=== PATIENT | female | born 1985 | race Two or more races ===

== ENCOUNTER 2017-02-16 21:27 | Emergency (ER) | payer OTHER ==
[~2017-02-16] VITALS: Ht 152.4 cm; Wt 74.6 kg
[~2017-02-16 21:27] MED LIST: LAMO25TA PO
[2017-02-16 21:33] VITALS: BP 119/77; PULSE 98; TEMP 36.4; O2SAT 96; Ht 152.4 cm; Wt 74.6 kg
[2017-02-16] MEDS ORDERED: ALBUT/IPRATROP 3MG/0.5MG NEB 3 ML VIAL INH STA (21:40)
[2017-02-16] MEDS ORDERED: DEXAMETHASONE SOD INJ 10 MG/ML VIAL PO ONE (21:45)
[2017-02-16] MEDS ORDERED: PRED50TA PO (22:19)
--- NOTE | 2017-02-17 01:16 | EMERGENCY ROOM VISIT NOTE ---
History First contact with patient: 21:32 Chief Complaint: RESPIRATORY PROBLEMS Stated Complaint: TROUBLE BREATHING Nursing Triage Summary: pt states trouble breathing for past 45 minutes, hx of asthma, used inhaler with little relief History of Present Illness The patient is a 31 year old female who presents to the Emergency Room with complaints of cough and wheeze for the past hour. Patient has asthma and tried her inhaler with no relief of symptoms. No recent exacerbations. She is not on steroids. Patient denies chest pain, fevers, productive cough, cold symptoms , abdominal pain, leg pain or swelling. No other complains per patient. Review of Systems See HPI for pertinent positives & negatives. A total of 10 systems reviewed and were otherwise negative. Past Medical/Surgical History Asthma, seizures Social History Smoking Status: Never Smoker Alcohol Use: none Drug Use: none Marital Status: single Housing Status: lives with roommate Occupation Status: [employer] student Current/Historical Medications Scheduled Lamotrigine (Lamictal), 25 MG PO DAILY Prednisone (Prednisone), 50 MG PO DAILY Allergies Uncoded Allergies: ANTIMALARIAL (Allergy, Unknown, UNKN, 04/11/14) Physical Exam Vital Signs Date Time Temp Pulse Resp B/P (MAP) Pulse Ox O2 Delivery O2 Flow Rate FiO2 02/16/17 21:46 Room Air 02/16/17 21:33 36.4 98 18 119/77 96 Room Air Pain Rating (0-10): 0 Physical Exam PHYSICAL EXAM: Vital Signs: Reviewed Nurse's notes. Oxygen saturation was 96% on room air. GENERAL: pleasant female, Alert, oriented and coherent. The patient is able to speak in complete sentences. NECK: Supple, non-tender. CHEST : Symmetrical expansion. no retractions no accessory muscle use. HEART: Regular rate and normal heart sounds, no murmur, gallop or rub. LUNGS: Breath sounds equal but significantly diminished in intensity on both sides. Bilateral wheezes heard but no rales or pleuritic rub. SKIN: The skin was without rashes, erythema, edema, or bruising. There is no tenting of the skin. Capillary reflex less than 2 seconds. HEAD: Normocephalic atraumatic. EARS: External auditory canals clear, tympanic membranes pearly barros without erythema or effusion bilaterally. EYES: Pupils equal round and reactive to light and accommodation. Conjunctivae without injection, sclerae without icterus. Extraocular movements intact. NOSE: Patent, turbinates without inflammation or discharge. No sinus tenderness. MOUTH: Mucous membranes moist. Tonsils are not enlarged. Pharynx without erythema or exudate. Uvula midline. Airway patent. Tongue does not deviate. ABDOMEN: Positive bowel sounds x 4. Normal tympanic percussion. Soft, nontender, without masses or organomegaly. Heller sign negative. No guarding or rebound tenderness. MUSCULOSKELETAL: No muscle atrophy, erythema, or edema noted. NEURO: Patient was alert and oriented to person place and time. Normal sensation to light and sharp touch. No focal neurological deficits. Medical Decision & Procedures Medications Administered Medications (Trade) Dose Ordered Sig/Eloy Route Start Time Stop Time Status Last Admin Dose Admin Albuterol/ Ipratropium (Duoneb) 3 ml NOW STAT INH 02/16/17 21:40 02/16/17 21:41 DC 02/16/17 21:46 3 ML Dexamethasone Sodium Phosphate (Decadron Inj) 10 mg NOW ONCE PO 02/16/17 21:45 02/16/17 21:46 DC 02/16/17 21:46 10 MG ED Course Prior records/ancillary studies reviewed. Triage Nursing notes reviewed. Additional history obtained from the family. The patient's history was concerning for respiratory difficulties. Differential diagnosis: Etiologies such as infections, reactive airway disease, pneumonia, pneumothorax , COPD, CHF, cardiac ischemia, pulmonary embolism, musculoskeletal, gastrointestinal, as well as others were entertained. Physical examination: As above. ER treatment provided: Nebulizer, Decadron On reassessment the patient felt better. Diagnostic interpretation by me: Deferred This appears to be consistent with asthma exacerbation. Patient was reassessed and improved. Lungs are greatly improved. Sats are stable. Patient is speaking in full sentences. She is advised to take medications as directed and to use her inhaler. She is advised follow-up family care in a few days or here in the ER sooner for difficulty breathing, fevers, chest pains, worsening signs or symptoms or as needed. By the evaluation outlined above emergent etiologies such as CHF, cardiac ischemia, pulmonary embolism, pneumonia, pneumothorax, musculoskeletal, serious bacterial infections, as well as others were deemed relatively unlikely. The pt informed about the findings as listed above. All questions were answered and pleased with the treatment. Return instructions were outlined and the patient was discharged in stable condition. Outpatient prescription management: Prednisone Referral: The patient was referred back to their primary care physician for follow-up in 2 to 3 days for a recheck of the current condition. Medical Decision as above Impression Primary Impression: Asthma exacerbation Departure Information Dispostion Home / Self-Care Condition GOOD Prescriptions Prednisone (Prednisone) 50 Mg Tab 50 MG PO DAILY for 4 Days, #4 TAB Prov: India Gibbs PA-C 02/16/17 Forms WORK / SCHOOL INSTRUCTIONS, HOME CARE DOCUMENTATION FORM, IMPORTANT VISIT INFORMATION Patient Instructions Asthma - [facility] Additional Instructions Albuterol Inhaler: Take 2 puffs four times daily for five days, then as needed. Prednisone 50mg: Once daily until the prescription is finished. It is best to take this earlier in the day as some patients note occasional difficulty falling asleep when taken in the late evening. Acetaminophen(Tylenol) may be used for fever or pain. Use 1000mg every six hours as needed. Avoid using more than 3000mg in a 24 hour period. (AND/OR) Ibuprofen(Motrin, Advil) may be used for fever or pain. Use 600mg every six hours as needed. Take with food. Avoid using more than 2400mg in a 24 hour period. Do not use 2400mg per day for more than three consecutive days without physician direction. Prolonged inappropriate use can lead to stomach upset or ulcers. Rest and drink plenty of fluids. Avoid smoke/smoking, fumes, dust, or any triggers in the past that may have affected your breathing. Continue current medications. Return to the ER for chest pain, difficulty breathing, fevers, vomiting, worsening of your condition, or as needed. Follow up with your primary physician this week for a recheck of your current condition.
== END 2017-02-16 22:25 | disposition home or self-care (01) ==
LOC: C.EDB 21:28 → C.EDC 22:25
DX: J45.901 Unspecified asthma with (acute) exacerbation (principal); G40.909 Epilepsy, unspecified, not intractable, without status epilepticus; Z79.899 Other long term (current) drug therapy; Z88.8 Allergy status to other drugs, medicaments and biological substances

== ENCOUNTER 2021-11-12 07:43 | Inpatient (IN) ==
[2021-11-12] MEDS ORDERED: OXYTOCIN 30 UNITS/500 ML BAG IV PRN (07:47)
--- NOTE | 2021-11-12 08:11 | History & Physical Report ---
Date of Service November 12, 2021 Assessment & Plan (1) with 39 completed weeks gestation: (2) Epilepsy affecting : (3) IUGR (intrauterine growth restriction) affecting care of mother: Plan: plan pit induction, arom as indicated. epidural on demand. fetus category one. continue lamictal. anticipate . Admission and Anticipated Discharge Date Admission Date: November 12, 2021 History of Present Illness Chief Complaint: induction for iugr Primary Care Provider: NO PCP Patient is a 36yof at 39 4/7 weeks who presents to labor and delivery for induction of labor for IUGR. Diagnosed at 28 weeks. Testing has been reassuring. IN fact last ultrasound showed EFW 17% but decision made for induction after 39 weeks. Patient had a amaya bulb placed last night which fell out overnight. Some cramping and spotting with the bulb. +fm. Occasional contraction. 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 Salazar, Karolyn Bowling and Mala on November 02 was induce as close to 39 weeks as possible. Induction November 12 as first avail. Will move up to 02/08 if avail OB Labs: Blood Type O Negative 04/05/21 Antibody Screen NEGATIVE 08/23/21 Hemoglobin 12.4 g/dL (12.0-16.0) 08/23/21 Hematocrit 37.8 % (37-47) 08/23/21 Mean Corpuscular Volume 91.5 fL (80-100) 04/05/21 Platelet CountD 265 K/uL (130-400) 04/05/21 Rubella IgG Antibody Immune (Immune) 04/05/21 Rapid Plasma Reagin Nonreactive (Nonreactive) 04/05/21 Hepatitis B Surface Antigen Neg (Neg) 04/05/21 HIV (1&2) Ab and P24 Ag, 4th Gener Neg (Neg) 04/05/21 Glucose 1 Hour 50 gm Load 150 mg/dl (70-130) H 05/31/21 OB Optional Labs: Chlamydia trachomatis RNA NOT DETECTED (NOT DETECTED) 04/05/21 Neisseria gonorrhoeae RNA NOT DETECTED (NOT DETECTED) 04/05/21 Thyroid Stimulating Hormone (TSH) 1.70 uIU/mL (0.30-4.50) 07/09/21 Labs Reviewed: declines cf/sma and cfDNA and quad/msafp--smp failed 2 hr at 16 weeks 85/185/147--akh GBS negative. Allergies Allergy/AdvReac Type Severity Reaction Status Date / Time ANTIMALARIAL Allergy Unknown Unknown Uncoded 11/11/21 19:41 Home Medications Medication Instructions Recorded Confirmed Type albuterol sulfate 90 mcg/actuation 2 puffs INH Q6H PRN 02/18/20 11/12/21 History aerosol inhaler (ProAir HFA) folic acid 1 mg tablet 4 mg PO DAILY 90 Days #360 tab 02/05/21 11/12/21 Rx levothyroxine 50 mcg capsule 50 mcg PO DAILY 03/29/21 11/12/21 History prenat.vits,cami,[id number] 1 tab PO DAILY #90 tab 03/29/21 11/12/21 Rx blood sugar diagnostic #150 ea 06/14/21 11/09/21 Rx acetone (urine) test (Ketone Urine #50 ea 06/15/21 11/09/21 Rx Test) blood sugar diagnostic #150 ea 06/15/21 11/09/21 Rx lancets 33 gauge (OneTouch Delica #150 ea 06/15/21 11/09/21 Rx Lancets) budesonide 180 mcg/actuation 2 inh INHALATION BID PRN 11/12/21 11/12/21 History breath activated powder inhaler (Pulmicort Flexhaler) lamotrigine 200 mg tablet 250 mg PO BID 11/12/21 11/12/21 History (Lamictal) Patient History Medical History Asthma exacerbation PRN inhaler use Gestational diabetes, diet controlled with current Hypothyroid takes synthyroid IUGR (intrauterine growth restriction) with current Juvenile myoclonic epilepsy takes lamictal Seizure Varicella Surgical History [place] teeth removed 2018 Family History Father Asthma Mother Thyroid disease Denies family history of Ovarian cancer Prostate cancer Breast cancer Colorectal cancer Social History Smoking Status: Never smoker Second Hand Exposure: No; Hx Alcohol Use: No Hx Substance Use: No Preferred Language: Palauan Communication Ability: Effective Visual Impairment: No Limitations Hearing Ability: Normal Account Receivable Associate Required: No Beliefs That Will Affect Care: None marital status: marital status details: Jason Murray (37) [phone] Current Living Situation: Spouse Current Living Situation Comment: Lives with spouse. No pets current occupational status: employed current occupation: teacher- works remotely Other Information That Helps Us Care for You: No Feels Safe at Home: Yes Safety Concerns: Feels Safe At This Time caffeine: Yes (2 cups/day) Assistive Devices: None OB History g1--current [employer] RELATIONS History noncontributory Physical Exam Constitutional: WD/WN, vitals as above Neck: trachea midline, no thyromegaly Gastrointestinal (Abdomen): soft, nt, nd Psychiatric: A+Ox3, euthymic affect Genitourinary: cx--4/80/-2/soft, ant, efw 5-6 # toco--rare contractions efm--150s wtih mod variability, accels to 170s, no decels Results & Data ([facility]) Vital Signs (Past 12 Hours) Vital Signs Temp Pulse Resp BP 11/12/21 07:52 120 H 108/69 11/12/21 07:50 36.5 C 18 Code Status & VTE Plan VTE Prophylaxis Plan VTE Prophylaxis will be ordered: No Coding Level of Care Code None Diagnoses with 39 completed weeks gestation Z3A.39 Epilepsy affecting O99.350; G40.909 IUGR (intrauterine growth restriction) affecting care of mother O36.5907
[2021-11-12 08:32] LABS: Hemoglobin 11.3 g/dL (12.0-16.0); Mean Corpuscular Hemoglobin 27.8 pg (25-34); Mean Corpuscular Hgb Conc 32.3 g/dL (32-36); Mean Platelet Volume 11.1 fL (7.4-10.4); Platelet Count 237 K/uL (130-400); RDW Coefficient of Variation 14.1 % (11.5-14.5); Red Blood Count 4.07 M/uL (4.2-5.4); White Blood Count 8.66 K/uL (4.8-10.8)
[2021-11-12] MEDS: lamoTRIgine 25 MG TAB PO SCH ×2 (09:07→21:19)
[2021-11-12] MEDS: lamoTRIgine 100 MG TAB PO SCH ×2 (09:07→21:19)
[2021-11-12] MEDS: LACTATED RINGER'S 1,000 ML IV PRN ×3 (09:19→21:43)
[2021-11-12] MEDS: OXYTOCIN 30 UNITS/500 ML BAG IV PRN (09:23)
[2021-11-12] MEDS ORDERED: ePHEDrine sulfate 50 MG/ML AMP ONE (12:55)
[2021-11-12] MEDS ORDERED: fentaNYL citrate 100 MCG/2 ML VIAL ONE (12:55)
[2021-11-12] MEDS ORDERED: BUPIVACAINE 0.25% 30 ML VIAL ONE (12:56)
[2021-11-12] MEDS ORDERED: SODIUM CHLORIDE 0.9% INJ 10 ML VIAL ONE (12:56)
[2021-11-12] MEDS ORDERED: fentaNYL 2MCG/ML ROPIVACAINE 1.25MG/ML 100 ML BAG EPI ONE (12:56)
[2021-11-12] MEDS ORDERED: ONDANSETRON INJ 2 MG/ML 2 ML VIAL IV PRN (13:28)
[2021-11-12] MEDS ORDERED: diphenhydrAMINE 50 MG/ML VIAL IV PRN (13:28)
[2021-11-12] MEDS ORDERED: PROMETHAZINE HCL 6.25 MG in SODIUM CHLORIDE 0.9% 50 ML IV PRN (13:28)
[2021-11-12] MEDS ORDERED: fentaNYL 2MCG/ML ROPIVACAINE 1.25MG/ML 100 ML BAG EPI PRN (13:28)
[2021-11-12] MEDS ORDERED: NALBUPHINE HCL INJ 10 MG/ML AMP IV PRN (13:28)
[2021-11-12] MEDS ORDERED: ePHEDrine sulfate 50 MG/ML AMP IV PRN (13:28)
[2021-11-12] MEDS ORDERED: NALOXONE HCL 0.4 MG/1 ML VIAL/CARP IV PRN (13:28)
[2021-11-12] MEDS ORDERED: NALOXONE HCL 1 MG in SODIUM CHLORIDE 0.9% 1000ML 1,000 ML IV PRN (13:28)
--- NOTE | 2021-11-12 13:28 | Anesthesiology Consultation ---
Date of Service November 12, 2021 Assessment & Plan Chart Review Chart Review: Patient NOT seen in Pre Admission Testing and Acceptable Risk for Labor Epidural Consults Requested none ASA ASA2 Proposed Anesthesia Anesthesia Type: Labor Epidural Risk / Benefits Reviewed With: PT / POA / Parent / Guardian, Accepts Plan and Informed Consent Obtained History Height/Weight Height: 5 ft Weight: 82.1 kg Allergies Allergy/AdvReac Type Severity Reaction Status Date / Time ANTIMALARIAL Allergy Unknown Unknown Uncoded 11/11/21 19:41 Medications Home Medications Medication Instructions Recorded Confirmed Last Taken albuterol sulfate 90 mcg/actuation 2 puffs INH Q6H PRN 02/18/20 11/12/21 Unknown aerosol inhaler (ProAir HFA) folic acid 1 mg tablet 4 mg PO DAILY 90 Days #360 tab 02/05/21 11/12/21 11/12/21 06:00 levothyroxine 50 mcg capsule 50 mcg PO DAILY 03/29/21 11/12/21 11/12/21 03:30 prenat.vits,cami,[id number] 1 tab PO DAILY #90 tab 03/29/21 11/12/21 11/12/21 06:30 blood sugar diagnostic #150 ea 06/14/21 11/09/21 Unknown acetone (urine) test (Ketone Urine #50 ea 06/15/21 11/09/21 Unknown Test) blood sugar diagnostic #150 ea 06/15/21 11/09/21 Unknown lancets 33 gauge (OneTouch Delica #150 ea 06/15/21 11/09/21 Unknown Lancets) budesonide 180 mcg/actuation 2 inh INHALATION BID PRN 11/12/21 11/12/21 Unknown breath activated powder inhaler (Pulmicort Flexhaler) lamotrigine 200 mg tablet 250 mg PO BID 11/12/21 11/12/21 11/12/21 06:30 (Lamictal) Active Medications Generic Name Dose Route Start Last Admin Trade Name Freq PRN Reason Stop Dose Admin Lactated Ringer's 1,000 mls @ 125 mls/hr 11/12/21 07:47 11/12/21 09:19 Lr IV 11/14/21 07:46 125 mls/hr .Q8H PRN Administration L&D Protocol Protocol Oxytocin 30 units in 500 mls @ 12 mls/hr 11/12/21 07:49 04/11/22 12:00 Pitocin IV 11/14/21 07:48 0.72 units/hr .Q24H PRN 12 mls/hr Labor Induction/Augmentation Titration Protocol 0.72 UNITS/HR Lamotrigine 200 mg 11/12/21 09:00 11/12/21 09:07 Lamotrigine 100 Mg Tab PO 12/12/21 08:59 Not Given BID AGUSTIN Lamotrigine 50 mg 11/12/21 09:00 11/12/21 09:07 Lamotrigine 25 Mg Tab PO 12/12/21 08:59 Not Given BID AGUSTIN Past Medical History Medical History Asthma exacerbation PRN inhaler use Gestational diabetes, diet controlled with current Hypothyroid takes synthyroid IUGR (intrauterine growth restriction) with current Juvenile myoclonic epilepsy takes lamictal Seizure Varicella Exercise / Class Metabolic Activity II 4-5 Yardwork/Stairs/Walk up hill Past Family History Family History Father Asthma Mother Thyroid disease Denies family history of Ovarian cancer Prostate cancer Breast cancer Colorectal cancer Past Surgical History Surgical History [place] teeth removed 2018 Past Anesthesia History No Hx of Anesthesia Complications and No Family Hx of Anesthesia Complications History of PONV No Hx of PONV and No Hx of Motion Sickness Social History Smoking Status: Never smoker Hx Alcohol Use: No Hx Substance Use: No Physical Exam Vital Signs Last Vital Signs Temp 36.4 C L 11/12/21 11:01 Pulse 84 11/12/21 13:23 Resp 20 11/12/21 11:01 BP 121/62 11/12/21 13:22 Pulse Ox 99 11/12/21 13:23 ENMT Mouth: no dentition abnormality Thyromental Distance: > or= 3.5 Finger Breadths Mallampati Class: II Neck normal visual inspection Respiratory normal respiratory effort Auscultation: lungs clear to auscultation bilaterally Cardiovascular Rate/Rhythm: regular rate and regular rhythm Psychiatric Orientation: alert Testing Laboratory Results 11/12/21 08:16 11/12/21 11/12/21 11/12/21 12:50 09:47 08:45 POC Glucose 75 93 95
--- NOTE | 2021-11-12 16:43 | Labor Progress Brief Note ---
Date of Service November 12, 2021 Subjective comfortable Assessment & Plan (1) with 39 completed weeks gestation: (2) IUGR (intrauterine growth restriction) affecting care of mother: Plan: continue current management. fetus catgory one. anticipate vaginal delivery. Admission and Anticipated Discharge Date Admission Date: November 12, 2021 Physical Exam Physical Exam: cx--4/80/-2 arom--clear cephalic by us toco--q 2-4 min, pit at 14 efm--130s wtih mod variability, small accels, no decels Results & Data ([facility]) Vital Signs (Past 12 Hours) Vital Signs Temp Pulse Resp BP Pulse Ox 11/12/21 16:38 100 H 99 11/12/21 16:36 105 H 112/73 11/12/21 16:33 103 H 99 11/12/21 16:28 93 H 99 11/12/21 16:23 104 H 98 11/12/21 16:19 96 H 109/71 11/12/21 16:18 110 H 100 11/12/21 16:13 100 H 100 11/12/21 16:08 87 99 11/12/21 16:05 95 H 99/57 L 11/12/21 16:03 103 H 99 11/12/21 15:58 99 H 100 11/12/21 15:53 96 H 99 11/12/21 15:50 95 H 100/58 L 11/12/21 15:48 103 H 100 11/12/21 15:43 100 H 99 11/12/21 15:38 94 H 98 11/12/21 15:35 97 H 107/63 11/12/21 15:33 92 H 98 11/12/21 15:28 102 H 98 11/12/21 15:23 95 H 98 11/12/21 15:20 108 H 102/69 11/12/21 15:18 94 H 99 11/12/21 15:13 115 H 99 11/12/21 15:08 90 98 11/12/21 15:05 88 105/64 11/12/21 15:03 84 99 11/12/21 14:58 100 H 99 11/12/21 14:53 93 H 100 11/12/21 14:49 100 H 95/58 L 11/12/21 14:48 95 H 100 11/12/21 14:43 101 H 99 04/11/22 14:38 97 H 99 11/12/21 14:35 99 H 108/55 L 11/12/21 14:33 97 H 98 11/12/21 14:28 101 H 99 11/12/21 14:23 98 H 99 11/12/21 14:19 101 H 111/63 11/12/21 14:18 107 H 98 11/12/21 14:13 93 H 99 11/12/21 14:08 93 H 99 11/12/21 14:05 104 H 108/60 11/12/21 14:03 105 H 100 11/12/21 13:58 98 H 100 11/12/21 13:53 98 H 100 11/12/21 13:48 107 H 100 11/12/21 13:47 100 H 103/61 11/12/21 13:43 92 H 99 11/12/21 13:42 113 H 108/62 11/12/21 13:38 108 H 98 11/12/21 13:37 106 H 110/58 L 11/12/21 13:33 110 H 99 11/12/21 13:31 106 H 110/56 L 11/12/21 13:29 99 H 108/57 L 11/12/21 13:28 100 H 99 11/12/21 13:27 94 H 109/59 L 11/12/21 13:23 84 99 11/12/21 13:22 103 H 121/62 11/12/21 13:18 92 H 99 11/12/21 13:13 95 H 130/70 97 11/12/21 12:06 87 105/60 11/12/21 11:01 36.4 C L 88 20 120/77 11/12/21 10:01 94 H 113/70 11/12/21 09:28 84 111/69 11/12/21 08:02 36.5 C 18 11/12/21 07:52 120 H 108/69 11/12/21 07:50 36.5 C 18 Coding Level of Care Code None Diagnoses with 39 completed weeks gestation Z3A.39 IUGR (intrauterine growth restriction) affecting care of mother O36.5990
--- NOTE | 2021-11-12 19:11 | Labor Progress Brief Note ---
Date of Service November 12, 2021 Subjective comfortable Assessment & Plan (1) with 39 completed weeks gestation: (2) Gestational diabetes mellitus: (3) IUGR (intrauterine growth restriction) affecting care of mother: Plan: continue current management. fetus category one, making progress, bs in range. anticipate . Admission and Anticipated Discharge Date Admission Date: November 12, 2021 Physical Exam Physical Exam: cx--6/100/0 toco--q2min, pit at 18 efm--130s with mod variability, accels to 150s, no decels Results & Data ([facility]) Vital Signs (Past 12 Hours) Vital Signs Temp Pulse Resp BP Pulse Ox 11/12/21 19:08 93 H 99 11/12/21 19:06 96 H 112/75 11/12/21 19:03 93 H 98 11/12/21 18:58 96 H 98 11/12/21 18:53 99 H 98 11/12/21 18:51 88 126/71 11/12/21 18:48 88 97 11/12/21 18:43 94 H 97 11/12/21 18:38 87 98 11/12/21 18:34 111 H 113/74 11/12/21 18:33 86 96 11/12/21 18:28 97 H 96 11/12/21 18:23 89 98 11/12/21 18:19 96 H 113/76 11/12/21 18:18 96 H 98 11/12/21 18:13 98 H 97 11/12/21 18:08 86 99 11/12/21 18:04 92 H 112/74 11/12/21 18:03 94 H 99 11/12/21 18:00 20 11/12/21 17:58 90 99 11/12/21 17:53 92 H 98 11/12/21 17:50 97 H 118/73 11/12/21 17:48 97 H 99 11/12/21 17:43 92 H 99 11/12/21 17:38 97 H 98 11/12/21 17:34 96 H 112/74 11/12/21 17:33 92 H 100 11/12/21 17:28 97 H 100 11/12/21 17:23 86 100 11/12/21 17:20 92 H 122/74 11/12/21 17:18 96 H 98 11/12/21 17:13 86 99 11/12/21 17:08 93 H 100 11/12/21 17:04 95 H 114/69 11/12/21 17:03 92 H 100 11/12/21 16:58 99 H 100 11/12/21 16:53 95 H 100 11/12/21 16:50 101 H 113/75 11/12/21 16:48 94 H 99 11/12/21 16:43 93 H 99 11/12/21 16:38 100 H 99 11/12/21 16:36 105 H 112/73 11/12/21 16:33 103 H 99 11/12/21 16:28 93 H 99 11/12/21 16:23 104 H 98 11/12/21 16:19 96 H 109/71 11/12/21 16:18 110 H 100 11/12/21 16:13 100 H 100 11/12/21 16:08 87 99 11/12/21 16:05 95 H 99/57 L 11/12/21 16:03 103 H 99 11/12/21 15:58 99 H 100 11/12/21 15:53 96 H 99 11/12/21 15:50 95 H 100/58 L 11/12/21 15:48 103 H 100 11/12/21 15:43 100 H 99 11/12/21 15:38 94 H 98 11/12/21 15:35 97 H 107/63 11/12/21 15:33 92 H 98 11/12/21 15:28 102 H 98 11/12/21 15:23 95 H 98 11/12/21 15:20 108 H 102/69 11/12/21 15:18 94 H 99 11/12/21 15:13 115 H 99 11/12/21 15:08 90 98 11/12/21 15:05 88 105/64 11/12/21 15:03 84 99 11/12/21 14:58 100 H 99 11/12/21 14:53 93 H 100 11/12/21 14:49 100 H 95/58 L 11/12/21 14:48 95 H 100 11/12/21 14:43 101 H 99 11/12/21 14:38 97 H 99 11/12/21 14:35 99 H 108/55 L 11/12/21 14:33 97 H 98 11/12/21 14:28 101 H 99 11/12/21 14:23 98 H 99 11/12/21 14:19 101 H 111/63 11/12/21 14:18 107 H 98 11/12/21 14:13 93 H 99 11/12/21 14:08 93 H 99 11/12/21 14:05 104 H 108/60 11/12/21 14:03 105 H 100 11/12/21 13:58 98 H 100 11/12/21 13:53 98 H 100 11/12/21 13:48 107 H 100 11/12/21 13:47 100 H 103/61 11/12/21 13:43 92 H 99 11/12/21 13:42 113 H 108/62 11/12/21 13:38 108 H 98 11/12/21 13:37 106 H 110/58 L 11/12/21 13:33 110 H 99 11/12/21 13:31 106 H 110/56 L 11/12/21 13:29 99 H 108/57 L 11/12/21 13:28 100 H 99 11/12/21 13:27 94 H 109/59 L 11/12/21 13:23 84 99 11/12/21 13:22 103 H 121/62 11/12/21 13:18 92 H 99 11/12/21 13:13 95 H 130/70 97 11/12/21 12:06 87 105/60 11/12/21 11:01 36.4 C L 88 20 120/77 11/12/21 10:01 94 H 113/70 11/12/21 09:28 84 111/69 11/12/21 08:02 36.5 C 18 11/12/21 07:52 120 H 108/69 11/12/21 07:50 36.5 C 18 Coding Level of Care Code None Diagnoses with 39 completed weeks gestation Z3A.39 Gestational diabetes mellitus O24.419 IUGR (intrauterine growth restriction) affecting care of mother O36.5990
--- NOTE | 2021-11-12 21:33 | Labor Progress Brief Note ---
Date of Service November 12, 2021 Subjective comfortable , not feeling any rectal pressure Assessment & Plan (1) with 39 completed weeks gestation: (2) IUGR (intrauterine growth restriction) affecting care of mother: Plan: labor down for a bit and then start pushing. fetus category. anticipate . Admission and Anticipated Discharge Date Admission Date: November 12, 2021 Physical Exam Physical Exam: cx--c/c/+1 toco--q2-3min, pit at 18 efm--140s with mod variaiblity, accels presents, no decels Results & Data ([place]) Vital Signs (Past 12 Hours) Vital Signs Temp Pulse Resp BP Pulse Ox 11/12/21 21:28 93 H 96 11/12/21 21:23 104 H 97 11/12/21 21:20 104 H 108/72 11/12/21 21:18 99 H 97 11/12/21 21:13 81 96 11/12/21 21:08 79 97 11/12/21 21:06 78 107/70 11/12/21 21:03 82 94 11/12/21 21:00 18 11/12/21 20:58 81 97 11/12/21 20:53 83 96 11/12/21 20:49 78 112/74 11/12/21 20:48 73 97 11/12/21 20:43 76 98 11/12/21 20:38 78 97 11/12/21 20:35 75 112/68 11/12/21 20:33 90 96 11/12/21 20:30 18 11/12/21 20:28 79 96 11/12/21 20:23 82 96 11/12/21 20:20 93 H 117/81 11/12/21 20:18 82 97 11/12/21 20:15 18 11/12/21 20:13 78 98 11/12/21 20:11 91 H 88 L 11/12/21 20:08 87 98 11/12/21 20:06 94 H 129/72 11/12/21 20:03 86 98 11/12/21 20:00 18 11/12/21 19:58 85 97 11/12/21 19:53 90 96 11/12/21 19:49 86 104/66 11/12/21 19:48 94 H 97 11/12/21 19:45 18 11/12/21 19:43 79 96 11/12/21 19:38 92 H 96 11/12/21 19:36 90 110/67 11/12/21 19:33 94 H 97 11/12/21 19:30 18 11/12/21 19:28 90 98 11/12/21 19:23 87 99 11/12/21 19:19 96 H 111/71 11/12/21 19:18 97 H 98 11/12/21 19:15 36.5 C 16 11/12/21 19:13 85 98 11/12/21 19:08 93 H 99 11/12/21 19:06 96 H 112/75 11/12/21 19:03 93 H 98 11/12/21 18:58 96 H 98 11/12/21 18:53 99 H 98 11/12/21 18:51 88 126/71 11/12/21 18:48 88 97 11/12/21 18:43 94 H 97 11/12/21 18:38 87 98 11/12/21 18:34 111 H 113/74 11/12/21 18:33 86 96 11/12/21 18:28 97 H 96 11/12/21 18:23 89 98 11/12/21 18:19 96 H 113/76 11/12/21 18:18 96 H 98 11/12/21 18:13 98 H 97 11/12/21 18:08 86 99 11/12/21 18:04 92 H 112/74 11/12/21 18:03 94 H 99 11/12/21 18:00 20 11/12/21 17:58 90 99 11/12/21 17:53 92 H 98 11/12/21 17:50 97 H 118/73 11/12/21 17:48 97 H 99 11/12/21 17:43 92 H 99 11/12/21 17:38 97 H 98 11/12/21 17:34 96 H 112/74 11/12/21 17:33 92 H 100 11/12/21 17:28 97 H 100 11/12/21 17:23 86 100 11/12/21 17:20 92 H 122/74 11/12/21 17:18 96 H 98 11/12/21 17:13 86 99 11/12/21 17:08 93 H 100 11/12/21 17:04 95 H 114/69 11/12/21 17:03 92 H 100 11/12/21 16:58 99 H 100 11/12/21 16:53 95 H 100 11/12/21 16:50 101 H 113/75 11/12/21 16:48 94 H 99 11/12/21 16:43 93 H 99 11/12/21 16:38 100 H 99 11/12/21 16:36 105 H 112/73 11/12/21 16:33 103 H 99 11/12/21 16:28 93 H 99 11/12/21 16:23 104 H 98 11/12/21 16:19 96 H 109/71 11/12/21 16:18 110 H 100 11/12/21 16:13 100 H 100 11/12/21 16:08 87 99 11/12/21 16:05 95 H 99/57 L 11/12/21 16:03 103 H 99 11/12/21 15:58 99 H 100 11/12/21 15:53 96 H 99 11/12/21 15:50 95 H 100/58 L 11/12/21 15:48 103 H 100 11/12/21 15:43 100 H 99 11/12/21 15:38 94 H 98 11/12/21 15:35 97 H 107/63 11/12/21 15:33 92 H 98 11/12/21 15:28 102 H 98 11/12/21 15:23 95 H 98 11/12/21 15:20 108 H 102/69 11/12/21 15:18 94 H 99 11/12/21 15:13 115 H 99 11/12/21 15:08 90 98 11/12/21 15:05 88 105/64 11/12/21 15:03 84 99 11/12/21 14:58 100 H 99 11/12/21 14:53 93 H 100 11/12/21 14:49 100 H 95/58 L 11/12/21 14:48 95 H 100 11/12/21 14:43 101 H 99 11/12/21 14:38 97 H 99 11/12/21 14:35 99 H 108/55 L 11/12/21 14:33 97 H 98 11/12/21 14:28 101 H 99 11/12/21 14:23 98 H 99 11/12/21 14:19 101 H 111/63 11/12/21 14:18 107 H 98 11/12/21 14:13 93 H 99 11/12/21 14:08 93 H 99 11/12/21 14:05 104 H 108/60 11/12/21 14:03 105 H 100 11/12/21 13:58 98 H 100 11/12/21 13:53 98 H 100 11/12/21 13:48 107 H 100 11/12/21 13:47 100 H 103/61 11/12/21 13:43 92 H 99 11/12/21 13:42 113 H 108/62 11/12/21 13:38 108 H 98 11/12/21 13:37 106 H 110/58 L 11/12/21 13:33 110 H 99 11/12/21 13:31 106 H 110/56 L 11/12/21 13:29 99 H 108/57 L 11/12/21 13:28 100 H 99 11/12/21 13:27 94 H 109/59 L 11/12/21 13:23 84 99 11/12/21 13:22 103 H 121/62 11/12/21 13:18 92 H 99 11/12/21 13:13 95 H 130/70 97 11/12/21 12:06 87 105/60 11/12/21 11:01 36.4 C L 88 20 120/77 11/12/21 10:01 94 H 113/70 Coding Level of Care Code None Diagnoses with 39 completed weeks gestation Z3A.39 IUGR (intrauterine growth restriction) affecting care of mother O36.5990
--- NOTE | 2021-11-12 23:15 | Labor Progress Brief Note ---
Date of Service November 12, 2021 Subjective pushing with good effort Assessment & Plan (1) with 39 completed weeks gestation: (2) IUGR (intrauterine growth restriction) affecting care of mother: Plan: continue stage two, moving baby, tolerating well. anticipate . Admission and Anticipated Discharge Date Admission Date: November 12, 2021 Physical Exam Physical Exam: c/c/+3, caput at +4 toco--q2-3min efm--150s wtih mod variability, +accels, no decels Results & Data ([place]) Vital Signs (Past 12 Hours) Vital Signs Temp Pulse Resp BP Pulse Ox 11/12/21 23:13 121 H 100 11/12/21 23:10 36.5 C 18 11/12/21 23:08 120 H 100 11/12/21 23:04 108 H 108/66 11/12/21 23:03 129 H 99 11/12/21 23:02 112 H 88 L 11/12/21 23:00 18 11/12/21 22:58 119 H 86 L 11/12/21 22:55 111 H 93 11/12/21 22:53 127 H 95 11/12/21 22:51 99 H 101/66 11/12/21 22:48 112 H 90 11/12/21 22:45 18 11/12/21 22:43 116 H 98 11/12/21 22:41 119 H 88 L 11/12/21 22:38 116 H 97 11/12/21 22:35 115 H 109/66 11/12/21 22:34 108 H 83 L 11/12/21 22:33 101 H 99 11/12/21 22:30 18 11/12/21 22:28 120 H 100 11/12/21 22:27 115 H 92 11/12/21 22:23 124 H 98 11/12/21 22:19 106 H 123/75 11/12/21 22:18 105 H 98 11/12/21 22:15 18 11/12/21 22:13 99 H 99 11/12/21 22:08 95 H 98 11/12/21 22:04 100 H 117/70 11/12/21 22:03 102 H 97 11/12/21 22:00 18 11/12/21 21:58 103 H 98 11/12/21 21:53 98 H 98 11/12/21 21:50 88 121/67 11/12/21 21:48 107 H 99 11/12/21 21:45 18 11/12/21 21:43 110 H 99 11/12/21 21:38 98 H 98 11/12/21 21:34 96 H 116/72 11/12/21 21:33 100 H 96 11/12/21 21:30 36.8 C 18 11/12/21 21:28 93 H 96 11/12/21 21:23 104 H 97 11/12/21 21:20 104 H 108/72 11/12/21 21:18 99 H 97 11/12/21 21:13 81 96 11/12/21 21:08 79 97 11/12/21 21:06 78 107/70 11/12/21 21:03 82 94 11/12/21 21:00 18 11/12/21 20:58 81 97 11/12/21 20:53 83 96 11/12/21 20:49 78 112/74 11/12/21 20:48 73 97 11/12/21 20:43 76 98 11/12/21 20:38 78 97 11/12/21 20:35 75 112/68 11/12/21 20:33 90 96 11/12/21 20:30 18 11/12/21 20:28 79 96 11/12/21 20:23 82 96 11/12/21 20:20 93 H 117/81 11/12/21 20:18 82 97 11/12/21 20:15 18 11/12/21 20:13 78 98 11/12/21 20:11 91 H 88 L 11/12/21 20:08 87 98 11/12/21 20:06 94 H 129/72 11/12/21 20:03 86 98 11/12/21 20:00 18 11/12/21 19:58 85 97 11/12/21 19:53 90 96 11/12/21 19:49 86 104/66 11/12/21 19:48 94 H 97 11/12/21 19:45 18 11/12/21 19:43 79 96 11/12/21 19:38 92 H 96 11/12/21 19:36 90 110/67 11/12/21 19:33 94 H 97 11/12/21 19:30 18 11/12/21 19:28 90 98 11/12/21 19:23 87 99 11/12/21 19:19 96 H 111/71 11/12/21 19:18 97 H 98 11/12/21 19:15 36.5 C 16 11/12/21 19:13 85 98 11/12/21 19:08 93 H 99 11/12/21 19:06 96 H 112/75 11/12/21 19:03 93 H 98 11/12/21 18:58 96 H 98 11/12/21 18:53 99 H 98 11/12/21 18:51 88 126/71 11/12/21 18:48 88 97 11/12/21 18:43 94 H 97 11/12/21 18:38 87 98 11/12/21 18:34 111 H 113/74 11/12/21 18:33 86 96 11/12/21 18:28 97 H 96 11/12/21 18:23 89 98 11/12/21 18:19 96 H 113/76 11/12/21 18:18 96 H 98 11/12/21 18:13 98 H 97 11/12/21 18:08 86 99 11/12/21 18:04 92 H 112/74 11/12/21 18:03 94 H 99 11/12/21 18:00 20 11/12/21 17:58 90 99 11/12/21 17:53 92 H 98 11/12/21 17:50 97 H 118/73 11/12/21 17:48 97 H 99 11/12/21 17:43 92 H 99 11/12/21 17:38 97 H 98 11/12/21 17:34 96 H 112/74 11/12/21 17:33 92 H 100 11/12/21 17:28 97 H 100 11/12/21 17:23 86 100 11/12/21 17:20 92 H 122/74 11/12/21 17:18 96 H 98 11/12/21 17:13 86 99 11/12/21 17:08 93 H 100 11/12/21 17:04 95 H 114/69 11/12/21 17:03 92 H 100 11/12/21 16:58 99 H 100 11/12/21 16:53 95 H 100 11/12/21 16:50 101 H 113/75 11/12/21 16:48 94 H 99 11/12/21 16:43 93 H 99 11/12/21 16:38 100 H 99 11/12/21 16:36 105 H 112/73 11/12/21 16:33 103 H 99 11/12/21 16:28 93 H 99 11/12/21 16:23 104 H 98 11/12/21 16:19 96 H 109/71 11/12/21 16:18 110 H 100 11/12/21 16:13 100 H 100 11/12/21 16:08 87 99 11/12/21 16:05 95 H 99/57 L 11/12/21 16:03 103 H 99 11/12/21 15:58 99 H 100 11/12/21 15:53 96 H 99 11/12/21 15:50 95 H 100/58 L 11/12/21 15:48 103 H 100 11/12/21 15:43 100 H 99 11/12/21 15:38 94 H 98 11/12/21 15:35 97 H 107/63 11/12/21 15:33 92 H 98 11/12/21 15:28 102 H 98 11/12/21 15:23 95 H 98 11/12/21 15:20 108 H 102/69 11/12/21 15:18 94 H 99 11/12/21 15:13 115 H 99 11/12/21 15:08 90 98 11/12/21 15:05 88 105/64 11/12/21 15:03 84 99 11/12/21 14:58 100 H 99 11/12/21 14:53 93 H 100 11/12/21 14:49 100 H 95/58 L 11/12/21 14:48 95 H 100 11/12/21 14:43 101 H 99 11/12/21 14:38 97 H 99 11/12/21 14:35 99 H 108/55 L 11/12/21 14:33 97 H 98 11/12/21 14:28 101 H 99 11/12/21 14:23 98 H 99 11/12/21 14:19 101 H 111/63 11/12/21 14:18 107 H 98 11/12/21 14:13 93 H 99 11/12/21 14:08 93 H 99 11/12/21 14:05 104 H 108/60 11/12/21 14:03 105 H 100 11/12/21 13:58 98 H 100 11/12/21 13:53 98 H 100 11/12/21 13:48 107 H 100 11/12/21 13:47 100 H 103/61 11/12/21 13:43 92 H 99 11/12/21 13:42 113 H 108/62 11/12/21 13:38 108 H 98 11/12/21 13:37 106 H 110/58 L 11/12/21 13:33 110 H 99 11/12/21 13:31 106 H 110/56 L 11/12/21 13:29 99 H 108/57 L 11/12/21 13:28 100 H 99 11/12/21 13:27 94 H 109/59 L 11/12/21 13:23 84 99 11/12/21 13:22 103 H 121/62 11/12/21 13:18 92 H 99 11/12/21 13:13 95 H 130/70 97 11/12/21 12:06 87 105/60 Coding Level of Care Code None Diagnoses with 39 completed weeks gestation Z3A.39 IUGR (intrauterine growth restriction) affecting care of mother O36.5990
[2021-11-13] MEDS ORDERED: ACETAMINOPHEN 325 MG TAB PO PRN (01:06)
[2021-11-13] MEDS ORDERED: OXYTOCIN 30 UNITS/500 ML BAG IV PRN (01:06)
[2021-11-13] MEDS ORDERED: HYDROCORTISONE ACETATE 25 MG SUPP PR PRN (01:06)
[2021-11-13] MEDS ORDERED: bisacodyL 10 MG SUPP PR PRN (01:06)
[2021-11-13] MEDS ORDERED: oxyCODONE/ACETAMINOPHEN 5mg/325mg TAB PO PRN (01:06)
[2021-11-13] MEDS ORDERED: miSOPROStoL 200 MCG TAB PR ONE (01:06)
[2021-11-13] MEDS ORDERED: DIPHTHERIA/TETANUS/PERTUSSIS 0.5 ML SYR/VIAL IM ONE (01:06)
[2021-11-13] MEDS ORDERED: BENZOCAINE 20% AER SPR 82.5 GM CAN EXT PRN (01:06)
[2021-11-13] MEDS ORDERED: METHYLERGONOVINE MALEATE 0.2 MG/ML AMP IM ONE (01:06)
[2021-11-13] MEDS: OXYTOCIN 30 UNITS/500 ML BAG IV PRN (01:08)
[2021-11-13] MEDS ORDERED: ceFAZolin 2000MG 2,000 MG/15 ML SYR IV ONE (01:12)
--- NOTE | 2021-11-13 01:12 | Delivery Summary ---
Vaginal Delivery Summary Date of Service November 13, 2021 Vaginal Delivery Summary and 2nd Degree LAC Pre-operative Diagnosis: at 39 4/7 weeks sga/iugr with elevated dopplers gdm Post-operative Diagnosis: same Procedure: amaya for cervical ripening pitocin induction epidural arom second degree laceration and repair EBL: 450cc Anesthesia: epidural Procedure: Patient presented to labor and delivery for induction for sga/iugr and elevated s/d ratios. She had a amaya bulb placed the night before that fell out in the wee hours of the morning. Started with pitocin then when in a good pattern, got epidural. then had arom for clear fluid. Progressed to c/c/+1-3 station. She pushed for about 1 hr 15 min to deliver a viable female infant in robin position. The nose and mouth were bulb suctioned on the perineum, a nuchal cord x 2 was reduced without difficulty and the rest of the was then delivered without difficulty. The nose and mouth were again bulb suctioned and the was placed in the maternal abdomen for drying and attention. Cord was clamped and cut at one minute of life. Cord blood and segment obtained. Baby taken to the warmer for drying and attention where she quickly perked up. Placenta delivered manually, intact with a three vessel cord. Cervix/sulci/rectum were intact. A second degree perineal laceration was repaired in the normal standard fashion. Hemostasis obtained with dilute pitocin and fundal massage, methergine and rectal cytotec. Apgars were 7/9. Mother and baby doing well at the end of the delivery. [facility] Vaginal Delivery Charge Delivery Type Details: and 2nd Degree LAC
[2021-11-13] MEDS ORDERED: METHYLERGONOVINE MALEATE 0.2 MG/ML AMP ONE (01:29)
[2021-11-13] MEDS ORDERED: miSOPROStoL 200 MCG TAB ONE (01:29)
[2021-11-13] MEDS: LEVOTHYROXINE SODIUM 50 MCG TABLET PO SCH (06:29)
--- NOTE | 2021-11-13 08:49 | Anesthesia Procedure Note ---
Date of Service November 13, 2021 Anesthesia Post Epidural Note Vital Signs Vital Signs: Temp Pulse Resp BP Pulse Ox 36.8 C 92 H 18 109/75 97 11/13/21 03:15 11/13/21 03:15 11/13/21 03:15 11/13/21 03:15 11/13/21 03:15 Notes Mental Status: alert / awake / arousable and participated in evaluation Nausea / Vomiting: adequately controlled Pain: adequately controlled Airway Patency, RR, SpO2: stable & adequate BP & HR: stable & adequate Hydration State: stable & adequate Neuraxial Anesthesia: was administered and sensory block is resolving Anesthetic Complications: no major complications apparent and Pt Satisfied with anesthetic care Epidural: Removed without complications and With tip intact
[2021-11-13] MEDS: PRENATAL VITAMIN 1 TAB PO SCH (08:57)
[2021-11-13] MEDS: DOCUSATE SODIUM 100 MG CAP PO SCH ×2 (08:57→21:04)
[2021-11-13] MEDS: IBUPROFEN 600 MG TAB PO PRN ×2 (08:57→19:08)
[2021-11-13] MEDS: lamoTRIgine 25 MG TAB PO SCH ×2 (08:57→21:04)
[2021-11-13] MEDS: lamoTRIgine 100 MG TAB PO SCH ×2 (08:57→21:04)
[2021-11-14] MEDS: LEVOTHYROXINE SODIUM 50 MCG TABLET PO SCH (05:59)
[2021-11-14 07:16] LABS: Hematocrit (blood only) 29.5 % (37-47); Hemoglobin 9.4 g/dL (12.0-16.0)
--- NOTE | 2021-11-14 07:32 | Obstetrical Progress Note ---
Date of Service <Dasia VanceDO - Last Filed: 11/14/21 07:32> November 14, 2021 Assessment & Plan <Dasia Woodard DO - Last Filed: 11/14/21 07:32> (1) Encounter for care and examination after delivery: 36 yo post op day1 from [facility] hypothyroidism, epilepsy, IUGR, doing well. -Continue routine post care. -vital signs reviewed and WNL (Tmax 37.0) -Blood Type O- recieved rhogam, GBS-, Rubella Immune -Encourage ambulation, monitor and control pain with Motrin, tylenol PRN, resume regular diet, monitor lochia -encourage breast feeding -hemoglobin 11.3 Day #:: 1 <Cori Carrasco MD, FACOG - Last Filed: 11/14/21 07:47> (1) Encounter for care and examination after delivery: Subjective <Dasia Woodard DO - Last Filed: 11/14/21 07:32> Ambulation: ambulating normally Voiding: no voiding problems Passing Gas:: Yes Diet Tolerance:: regular diet Lochia:: Small Feeding Type:: breast feeding Current Pain Level(1-10): 2 Review of Systems Denies fever, chills, sweats Denies shortness of breath, difficulty breathing, chest pain, palpitations, chest pressure. Denies breast pain. Denies dysuria. Denies headache or changes in vision. Physical Exam <Dasia VanceDO - Last Filed: 11/14/21 07:32> General: Alert, oriented. No acute distress. Cardiac: Regular rate and rhythm, no murmurs/rubs/gallops. Respiratory: Clear to auscultation bilaterally a/p, no wheezes/rales/rhonchi. No increased work of breathing. Symmetrical chest rise. No respiratory distress. Abdomen: Soft, nontender, nondistended. Bowel sounds present. Uterus: Uterine fundus firm, palpable 1 cm below umbilicus. Lower Extremities: No lower extremity edema or swelling. No deep calf pain. Red's negative bilaterally.. Results & Data ([facility]) <Dasia Woodard DO - Last Filed: 11/14/21 07:32> Vital Signs (Past 12 Hours) Vital Signs Temp Pulse Resp BP 11/13/21 23:29 36.4 C L 110 H 20 110/68 11/13/21 21:00 36.4 C L 102 H 18 104/56 L <Cori Carrasco MD, FACOG - Last Filed: 11/14/21 07:47> Co-Signing Physician Notes Resident Physician Supervision Note: I was present with Dr. Woodard during the history and exam. I discussed the case with the resident and agree with the findings and plan as documented in the note. Any exceptions or clarifications are listed here: [None] Documented By: Cori Carrasco MD, FACOG Resident Activity Tracking <Dasia Woodard DO - Last Filed: 11/14/21 07:32> Resident Involvement: Resident Care Provided Care Provided: Adult Hospital Medicine and OB Delivery
[2021-11-14] MEDS: lamoTRIgine 25 MG TAB PO SCH ×2 (09:29→21:14)
[2021-11-14] MEDS: IBUPROFEN 600 MG TAB PO PRN ×2 (09:29→19:48)
[2021-11-14] MEDS: lamoTRIgine 100 MG TAB PO SCH ×2 (09:29→21:14)
[2021-11-14] MEDS: PRENATAL VITAMIN 1 TAB PO SCH (09:29)
[2021-11-14] MEDS: DOCUSATE SODIUM 100 MG CAP PO SCH ×2 (09:29→19:48)
[2021-11-14] MEDS ORDERED: bisacodyL 5 MG TABEC PO SCH (20:00)
[2021-11-15] MEDS: LEVOTHYROXINE SODIUM 50 MCG TABLET PO SCH (06:16)
--- NOTE | 2021-11-15 06:21 | Obstetrical Progress Note ---
Date of Service <Dasia VanceDO - Last Filed: 11/15/21 07:09> November 15, 2021 Assessment & Plan <Dasia Woodard DO - Last Filed: 11/15/21 07:09> (1) Encounter for care and examination after delivery: 36 yo post op day2 from [facility] hypothyroidism, epilepsy, IUGR, doing well. -Continue routine post care. -vital signs reviewed and WNL (Tmax 37.0) -Blood Type O- recieved rhogam, GBS-, Rubella Immune -Encourage ambulation, monitor and control pain with Motrin, tylenol PRN, resume regular diet, monitor lochia -encourage breast feeding -hemoglobin 9.4 Day #:: 2 <Toña Ramirez MD - Last Filed: 11/15/21 07:05> (1) Encounter for care and examination after delivery: Subjective <Dasiacathie Woodard DO - Last Filed: 11/15/21 07:09> Ambulation: ambulating normally Voiding: no voiding problems Passing Gas:: Yes Diet Tolerance:: regular diet Lochia:: Moderate Feeding Type:: breast feeding (with bottle supplementation) Current Pain Level(1-10): 1 Review of Systems Denies fever, chills, sweats Denies shortness of breath, difficulty breathing, chest pain, palpitations, chest pressure. Denies breast pain. Denies dysuria. Denies headache or changes in vision. Physical Exam <Dasia VanceDO - Last Filed: 11/15/21 07:09> General: Alert, oriented. No acute distress. Cardiac: Regular rate and rhythm, no murmurs/rubs/gallops. Respiratory: Clear to auscultation bilaterally a/p, no wheezes/rales/rhonchi. No increased work of breathing. Symmetrical chest rise. No respiratory distress. Abdomen: Soft, nontender, nondistended. Bowel sounds present. Uterus: Uterine fundus firm, palpable 2 cm below umbilicus. Lower Extremities: No lower extremity edema or swelling. No deep calf pain. Red's negative bilaterally.. Results & Data ([facility]) <Dasia Woodard DO - Last Filed: 11/15/21 07:09> Vital Signs (Past 12 Hours) Vital Signs Temp Pulse Resp BP Pulse Ox 11/14/21 23:55 36.5 C 101 H 20 101/70 97 11/14/21 19:30 36.7 C 108 H 16 115/76 100 <Toña Ramirez MD - Last Filed: 11/15/21 07:05> Co-Signing Physician Notes Resident Physician Supervision Note: I interviewed and examined the patient. Discussed with Dr. Woodard and agree with findings and plan as documented in the note. Any exceptions or clarifications are listed here: Patient is day 2, and ready for d/c home today. Hgb not reflected above, dropped 11.3 to 9.4, appropriate and tolerated by patient. Documented By: Toña Ramirez MD, FACOG Resident Activity Tracking <Dasia Woodard DO - Last Filed: 11/15/21 07:09> Resident Involvement: Resident Care Provided Care Provided: Adult Hospital Medicine and OB Delivery
[2021-11-15] MEDS: DOCUSATE SODIUM 100 MG CAP PO SCH ×2 (09:52→10:00)
[2021-11-15] MEDS: lamoTRIgine 100 MG TAB PO SCH (09:53)
[2021-11-15] MEDS: IBUPROFEN 600 MG TAB PO PRN (09:53)
[2021-11-15] MEDS: lamoTRIgine 25 MG TAB PO SCH (09:53)
[2021-11-15] MEDS: PRENATAL VITAMIN 1 TAB PO SCH ×2 (09:53→10:00)
== END 2021-11-15 12:30 | disposition home or self-care (01) | DRG 806 ==
LOC: 4S1 07:43 → 4E2 11-13 03:31
DX: Z67.41 Type O blood, Rh negative; O70.1 Second degree perineal laceration during delivery; Z79.899 Other long term (current) drug therapy; O99.354 Diseases of the nervous system complicating childbirth; Z37.0 Single live birth; O36.5930 Maternal care for other known or suspected poor fetal growth, third trimester, not applicable or unspecified; Z88.3 Allergy status to other anti-infective agents; O69.81X0 Labor and delivery complicated by cord around neck, without compression, not applicable or unspecified; E03.9 Hypothyroidism, unspecified; Z3A.39 39 weeks gestation of pregnancy; G40.B09 Juvenile myoclonic epilepsy, not intractable, without status epilepticus; Z79.890 Hormone replacement therapy; O24.420 Gestational diabetes mellitus in childbirth, diet controlled; O99.284 Endocrine, nutritional and metabolic diseases complicating childbirth